=== PATIENT | male | born 1980 | race Caucasian/White ===

== ENCOUNTER → 2024-01-04 | Outpatient (CLI) | payer BC ==
--- NOTE | 2024-01-14 12:34 | P.PCN ---
Date of Procedure: 01/04/24 Operative Findings: Home sleep study report Date of service is 01/04/2024. This is a 43-year-old male patient with known history of obstructive sleep apnea. The patient was diagnosed having severe disease with an AHI of 37 and the patient was being treated with a APAP machine pressures of 5/15 cm of water. The patient had lost more than 100 pounds through dietary changes and taking Zepbound. At this point, the patient still using his CPAP no excessive sleepiness. Compliance was checked and the patient has been successful in therapy with a 95th percentile pressure of 7.9 on his APAP machine with an AHI of 0.5. Based on that, a home sleep study was ordered to reevaluate the presence and severity of obstructive sleep apnea and decide on the ongoing need for CPAP therapy. He has hypertension hyperlipidemia and history of plantar fasciitis as comorbid conditions. Pertinent physical findings Patient's weight is 246 with a height of 6 feet and 1 inches Technical description The [employer] system was used to complete this home sleep study. This is a type III home sleep study evaluation. The total recording duration was 7 hours and 48 minutes. The study started at 11:54 PM and ended at 7:43 AM. This was an adequate study as the patient demonstrated total of 7 hours and 36 minute s of flow monitoring and 7 hours and 37 minutes of oxygen saturation monitoring Results Respiratory analysis showed a total of 1 obstructive apnea and 20 obstructive hypopneas and the resulting AHI was 2.8 Oxygenation analysis The baseline pulse ox while awake was 95%, average pulse ox during sleep was 91% with a minimum pulse ox of 85% and the patient spent only 22 minutes of sleep time below pulse ox of 89%. Cardiac summary Average heart rate is 73 with a minimum heart rate of 58 and a maximum heart rate of 127 Assessment Obstructive sleep apnea. The patient lost more than 100 pounds and his AHI is currently 2.8 compared to 37 based on earlier study in 2020. No major hypersomnia or sleepiness. Ell[place] score is at 0. Plan Encouraged further weight loss. Maintain good sleep hygiene measures. May discontinue CPAP therapy at this point in time as the patient has no significant sleep breathing disorder based on the current home sleep study.
== END ==
LOC: 3 N SLEEP 10:00
PROVIDERS: ATTEND Internal Medicine Critical Care Medicine
DX: G47.33 Obstructive sleep apnea (adult) (pediatric) (principal)